=== PATIENT | male | born 1980 | race Caucasian/White ===

== ENCOUNTER 2020-11-01 18:48 | Emergency (ER) | payer BC, SELFPAY ==
--- NOTE | ~2020-11-01 | XR_ITS ---
EXAMINATION: XR hand RT min 3V DATE: 11/01/2020 19:36 INDICATION: Pain at the right fifth metacarpal post trauma TECHNIQUE: Posteroanterior, oblique and lateral views of the right hand were obtained. COMPARISON: None. FINDINGS: Only displaced sagittal oriented intra-articular fracture at the radial side of the base of the fifth metacarpal. No other fractures identified. Joint spaces are normal. Soft tissue swelling over the do rsal and ulnar sides of the hand. IMPRESSION: 1. Minimally displaced intra-articular fracture at the base of the right fifth metacarpal. Reviewed, dictated and finalized at location A.
[2020-11-01 18:58] VITALS: BP 137/86; PULSE 88; RESP 20; TEMP 36.4; O2SAT 99
[2020-11-01 19:09] VITALS: BP 137/86; PULSE 88; RESP 20; TEMP 36.4; O2SAT 99
--- NOTE | 2020-11-01 19:19 | ED.GENADULT ---
HPI - General Adult General Chief complaint: Extremity Injury, Upper Stated complaint: Bruised and swollen right Hand Source: patient Mode of arrival: ambulatory Limitations: no limitations History of Present Illness HPI narrative: Patient presents for evaluation of pain and bruising to the right hand since yesterday. He indicates he was placing large pieces of wood into a pile. He is forcefully moved a piece of wood forward using his right hand. It sounds like he jammed his hand in the process. Later in the day he attempted to push himself up off of the ground and felt a pain in the palmar aspect of the right hand overlying the fifth metacarpal. No loss of range of motion. He is right-hand dominant. He is not taking anything for pain. Pain is moderate in severity, without descriptive quality. No paresthesias. No additional complaints or concerns. Related Data Home Medications Medication Instructions Recorded Confirmed atorvastatin 10 mg PO DAILY 11/01/20 11/01/20 insulin lispro [Humalog U-100 CONTINUOUS SUBCUTANEOUS INFUSION 11/01/20 Insulin] lisinopril 5 mg PO DAILY 11/01/20 11/01/20 semaglutide [Ozempic] mg SUBCUT 11/01/20 Allergies Allergy/AdvReac Type Severity Reaction Status Date / Time No Known Allergies Allergy Verified 11/01/20 19:09 Review of Systems Review of Systems: Narrative: CONSTITUTIONAL: Denies fever, chills, or sweats. EYES: Denies visual changes, redness, or discharge. ENT: Denies rhinorrhea, congestion, sore throat, or otalgia. CARDIOVASCULAR: Denies chest pain, palpitations, or edema. RESPIRATORY: Denies cough or dyspnea. GASTROINTESTINAL: Denies abdominal pain, nausea, vomiting, or diarrhea. GENITOURINARY: Denies dysuria or hematuria. SKIN: Reports bruising to palmar aspect of right hand. MUSCULOSKELETAL: Reports pain in right hand. Denies back pain and myalgias NEUROLOGIC: Denies headache, numbness, dizziness, or weakness. PSYCHIATRIC: Denies anxiety or depression. [facility] Past Medical History Medical History (Updated 11/01/20 @ 20:30 by Ramírez Baugh, KIA, KAYLEE) Diabetes Surgical History Surgical History History of removal of cyst Family History Family History Father Diabetes mellitus Social History Social History Smoking status: Never smoker Alcohol intake: current Alcohol use details: Socially Substance use: never Living arrangements: with family Gender identity (if verbalized by the patient): Male Sexual Orientation (if Verbalized by the Patient): Straight or Heterosexual Spiritual care concerns: No Exam Narrative: Exam Narrative: GENERAL: Well-appearing, well-nourished, and in no acute distress. HEAD: Normocephalic, atraumatic. EYES: PERRLA and EOMI. ENT: Nares clear, no rhinorrhea or epistaxis. Mucous membranes moist. Oropharynx without tonsillar hypertrophy exudate or other lesions. Bilateral TMs pearly méndez nonbulging NECK: Supple. No adenopathy or masses. No carotid bruits or JVD CHEST: Clear to auscultation. No respiratory distress. No wheezes rales or rhonchi HEART: Regular rate and rhythm. No murmur heard. Normal peripheral pulses. ABDOMEN: Soft, nontender, nondistended, normal active bowel sounds. EXTREMITIES: Normal range of motion. No edema. Tenderness noted over fifth metacarpal of the right hand SKIN: Ecchymosis noted to palmar aspect of right hand. Warm, dry, no rash. NEURO: No focal deficits. Alert and oriented x3. PSYCH: Normal mood and affect. Course Course Emergency Course: This is a 40-year-old man here today with an injury to the right hand. X-ray showed proximal fifth metacarpal fracture. He was placed in a ulnar gutter splint and should follow-up outpatient with hand surgeon. He was also given a sling. He is neurovascularly int
== END 2020-11-01 20:35 | disposition home or self-care (01) ==
PROVIDERS: Emergency Provider Nurse Practitioner; PCP Internal Medicine
DX: S62.346A Nondisplaced fracture of base of fifth metacarpal bone, right hand, initial encounter for closed fracture (principal); X50.9XXA Other and unspecified overexertion or strenuous movements or postures, initial encounter; E11.9 Type 2 diabetes mellitus without complications
CPT/HCPCS: 29125; 73130; 99214; A4565; G0463

== ENCOUNTER 2022-04-08 16:33 | Emergency (ER) | payer BC, SELFPAY ==
[2022-04-08 16:39] VITALS: BP 125/86; PULSE 105; RESP 18; TEMP 36.7; O2SAT 100
--- NOTE | 2022-04-08 16:48 | ED.URI ---
HPI - URI/Sore Throat General Chief Complaint: Upper Respiratory Infection Stated Complaint: sore throat Time Seen by Provider: 04/08/22 16:48 Source: patient, RN notes reviewed and old records reviewed Mode of arrival: ambulatory Limitations: no limitations History of Present Illness HPI Narrative: 41-year-old male presents to the [facility] with complaints of body aches, headache, runny nose that started last night. Took some ibuprofen last night, no medications today. symptoms less than 24 hours Related Data Home Medications Medication Instructions Recorded Confirmed multivitamin (Multiple Vitamins 1 tablet PO DAILY 04/29/19 04/08/22 tablet) subcutaneous insulin pump (MiniMed #1 ea 03/02/20 04/08/22 [id number] Insulin Pump) Allergies Allergy/AdvReac Type Severity Reaction Status Date / Time No Known Allergies Allergy none Uncoded 12/15/21 08:47 Review of Systems Review of Systems: All systems reviewed & are unremarkable except as noted in HPI and below Constitutional: Constitutional: Reports no additional constitutional complaints Eyes: Eyes: Reports no additional eye complaints ENT: Reports as per HPI and Reports nasal congestion Cardiovascular: Cardiovascular: Reports no additional cardiovascular complaints, Denies chest pain and Denies dyspnea Respiratory: Respiratory: Reports no additional respiratory complaints, Denies chest congestion, Denies cough and Denies dyspnea Gastrointestinal: Gastrointestinal: Reports no additional gastrointestinal complaints, Denies abdominal pain, Denies nausea and Denies vomiting Musculoskeletal: Musculoskeletal: Reports no additional musculoskeletal complaints Integumentary/Breasts: Skin/Breast: Reports system reviewed and no additional complaints, except as docu Neurologic: Reports system reviewed and no additional complaints, except as documented Psychiatric: Psychiatric: Reports no additional psychiatric complaints Allergic/Immunologic: Allergic/Immunologic: Reports no additional allergic/immunologic complaints [facility] Past Medical History Medical History Diabetes Pure hypercholesterolemia, unspecified Type 1 diabetes mellitus with hyperglycemia, with long-term current use of insulin Surgical History Surgical History History of removal of cyst Family History Family History Father Family history of obesity Depression Hypertension Cerebrovascular accident Grandparent Family history of cataracts Family history of arthritis Diabetes mellitus Sibling Family history of attention deficit hyperactivity disorder (ADHD) Father Diabetes mellitus Social History Social History Smoking status: Never smoker Second hand tobacco smoke exposure: No Alcohol intake: current Alcohol use details: Socially Substance use: never Gender identity (if verbalized by the patient): Male Sexual Orientation (if Verbalized by the Patient): Straight or Heterosexual Spiritual care concerns: No Comments At the time of my signature, I reviewed and agree with the nursing past medical, surgical, social, and family history. There is no relevant family history pertinent to the patient complaint. Exam Const: General: cooperative, healthy appearing, comfortable, no acute distress, well developed, alert and well nourished Nutritional Appearance: well nourished and obese Orientation/consciousness: patient oriented x3 Limitations: no limitations HENMT: Head: normal to inspection Ears: hearing grossly normal bilaterally and external ears normal Face/Nose/Sinus: Normal external nose present, Normal nares present, Normal nasal mucous membranes and turbinates present, Nasal discharge present clear bilateral and normal facial exam Face and sinus: norm
== END 2022-04-08 16:59 | disposition home or self-care (01) ==
PROVIDERS: Emergency Provider Nurse Practitioner
DX: B34.9 Viral infection, unspecified (principal); J06.9 Acute upper respiratory infection, unspecified; E10.9 Type 1 diabetes mellitus without complications; E78.00 Pure hypercholesterolemia, unspecified; Z96.41 Presence of insulin pump (external) (internal)
CPT/HCPCS: 87081; 99212; G0463

== ENCOUNTER → 2023-04-24 15:27 | Outpatient (CLI) | payer BC, SELFPAY ==
--- NOTE | ~2023-04-24 | MR_ITS ---
EXAMINATION: MR ankle RT wo con DATE: 04/24/2023 16:15 INDICATION: Right ankle peroneal tendinitis TECHNIQUE: Magnetic resonance imaging (MRI) of the right ankle was performed without intravenous cont rast. Sequences included sagittal, coronal, and axial proton-density weighted fast spin echo without and with fat saturation. COMPARISON: None. FINDINGS: Medial ankle ligaments: Deep and superficial deltoid ligaments as well as the spring ligament are normal. Lateral ankle ligaments: The anterior and posterior inferior tibiofibular ligaments are normal. The anterior talofibular, calc aneofibular and posterior talofibular ligaments are normal. Tendons: Small enthesophytes at the calcaneal insertion of the normal Achilles tendon. There is a convex conto ur to the retromalleolar groove. There is a tear of the superior peroneal retinaculum with anterior s ubluxation of the peroneus longus and brevis tendons which extend along the anterolateral margin of t he lateral malleolus. There is mild tendinopathy and small longitudinal split tear of the peroneus lo ngus tendon at the level of the tip of the lateral malleolus. Additional mild tendinopathy and longit udinal split tearing of the peroneus brevis tendon centered more distally at the level of the peronea l tubercle. Small amount of fluid in the peroneal tendon sheath consistent with mild peroneal tenosyn ovitis. The tibialis anterior and extensor hallucis longus and extensor digitorum longus tendons are normal. The tibialis posterior, flexor digitorum longus and flexor hallucis longus tendons are normal . Plantar fascia: Mild tendinopathy/enthesopathy of the proximal plantar aponeurosis with moderate-sized plantar calcan eal spur. No associated marrow edema or surrounding soft tissue edema to suggest acute plantar fascii tis. Bones/other: Bone alignment is normal. There are low signal intensity bone islands at the distal tibia and posteri or calcaneus. Marrow signal is otherwise normal with no fracture, reactive edema or pathologic marrow replacing process. Joint spaces are relatively preserved. Fluid: Physiologic amount fluid in the joint spaces. Small ganglion cyst arising from the dorsal/medial jaycee in of the talonavicular joint space. IMPRESSION: 1. Tear of the superior peroneal retinaculum with anterior subluxation of the peroneus longus and juarez vis tendons. 2. Mild peroneal tenosynovitis with mild tendinopathy and longitudinal split tearing of both the maureen neus longus and brevis tendons. Reviewed, dictated and finalized at location A. [employer] IMPRESSION: 1. Tear of the superior peroneal retinaculum with anterior subluxation of the p eroneus longus and brevis tendons. 2. Mild peroneal tenosynovitis with mild tendinopathy and longitudinal split te aring of both the peroneus longus and brevis tendons.
== END ==
PROVIDERS: PCP Podiatrist Foot & Ankle Surgery; Visit Provider Podiatrist Foot & Ankle Surgery
DX: M76.71 Peroneal tendinitis, right leg (principal); S93.491A Sprain of other ligament of right ankle, initial encounter; X58.XXXA Exposure to other specified factors, initial encounter
CPT/HCPCS: 73721

== ENCOUNTER 2024-09-19 13:51 | Emergency (ER) | payer BC, SELFPAY ==
--- NOTE | ~2024-09-19 | XR_ITS ---
XR foot LT min 3V 09/19/2024 14:22 Indication: Left great toe pain and deformity Procedure: 4 views left first toe Comparison: No prior studies for comparison. Findings: There is a displaced oblique intra-articular fracture first proximal phalanx extending to t he IP joint. No other fracture is identified. Mild soft tissue swelling. Impression: 1: Displaced oblique intra-articular fracture first proximal phalanx extending to the IP joint. Reviewed, dictated and finalized at location A. Impression: 1: Displaced oblique intra-articular fracture first proximal phalanx extending to the IP joint.
[2024-09-19 14:00] VITALS: BP 122/83; PULSE 91; RESP 16; TEMP 35.9; O2SAT 100
--- NOTE | 2024-09-19 14:16 | ED.LOWEXIN ---
HPI - Extremity Injury (Lower) General Chief Complaint: Extremity Injury, Lower Stated Complaint: Left Great Toe Injury Time Seen by Provider: 09/19/24 14:00 Source: patient and RN notes reviewed Mode of arrival: ambulatory Limitations: no limitations History of Present Illness HPI Narrative: 43-year-old male presents to [facility] complaining of injury to left great toe. Patient reports stepping out his garage barefoot when he slipped on the steps and fell and got is left great toe caught in the door frame while falling. Patient denies hitting his head, loss of consciousness, neck or back pain, or any other injuries. Patient reports he has pain to his left great toe small laceration to the top his toe. He has tetanus is up-to-date. Patient reports numbness and tingling to his left great toe. Patient's injury occurred approximately 30 minutes ago prior to arrival. Patient states he is able to bear weight on his left foot. Patient's history of diabetes. Related Data Home Medications ?Medication ?Instructions ?Recorded ?Confirmed ?Last Taken ?Type multivitamin (Multiple Vitamins 1 tablet PO DAILY 04/29/19 06/26/24 Unknown History tablet) subcutaneous insulin pump 11/02/22 06/26/24 Unknown History Allergies Allergy/AdvReac Type Severity Reaction Status Date / Time No Known Allergies Allergy Verified 09/19/24 14:04 Review of Systems Review of Systems: CONSTITUTIONAL: Denies fever, chills, or sweats. EYES: Denies visual changes, redness, or discharge. ENT: Denies rhinorrhea, congestion, sore throat, or otalgia. CARDIOVASCULAR: Denies chest pain, palpitations, or edema. RESPIRATORY: Denies cough or dyspnea. GASTROINTESTINAL: Denies abdominal pain, nausea, vomiting, or diarrhea. GENITOURINARY: Denies dysuria or hematuria. SKIN: Denies rash, or itching. Positive for wound MUSCULOSKELETAL: Denies back pain, joint pain, or myalgia. Positive for left great toe injury NEUROLOGIC: Denies headache, or weakness. Positive for numbness and tingling PSYCHIATRIC: Denies anxiety or depression. All other systems reviewed are negative, except as documented in HPI. [facility] Past Medical History Medical History Obesity High thyroid stimulating hormone (TSH) level BMI greater than 30 Pure hypercholesterolemia, unspecified Type 1 diabetes mellitus with hyperglycemia, with long-term current use of insulin Surgical History Surgical History History of ankle surgery History of removal of cyst Family History Family History Father Family history of obesity Depression Hypertension Cerebrovascular accident Grandparent Family history of cataracts Family history of arthritis Diabetes mellitus Sibling Family history of attention deficit hyperactivity disorder (ADHD) Father Diabetes mellitus Social History Social History Smoking status: Never smoker Second hand tobacco smoke exposure: No Alcohol intake: current Alcohol use details: Socially Substance use: never Lack of Transportation: No Lack of Food: Never True Current Housing: I Have Housing Concerned About Future Housing: No Difficulty Paying Gas/Electric Bills: No Difficulty Paying for Meds: No Currently Unemployed: No Education: Bachelor's Degree Difficulty w/ Childcare or Family Care: No Living arrangements: with family Gender identity (if verbalized by the patient): Male Sexual Orientation (if Verbalized by the Patient): Straight or Heterosexual Spiritual care concerns: No Comments At the time of my signature, I reviewed and agree with the nursing past medical, surgical, social, and family history. There is no relevant family history pertinent to the patient complaint. Exam Narrative: GENERAL: This is a well-nourished, well-developed adult, in no apparent distress. They are non ill-appearing, nontoxic appearing. HEAD: normocephalic, atraumatic. EYES: Sclera clear/white. Vision is grossly intact. Conjunctiva normal. Extraocular movement intact. EARS: External ears normal Hearing grossly intact. NOSE: External nose normal THROAT: Mucous membranes moist NECK: Neck supple CARDIOVASCULAR: Regular rate and rhythm RESPIRATORY: Respiratory rate normal, respiratory effort nonlabored, no respiratory distress NEURO: awake, alert, and oriented to person, place and time. There were no obvious focal neurologic abnormalities. EXTREMITIES: Left great toe: No obvious deformity, injury, swelling, bruising, redness. Left great toe is angled towards the 2nd toe. There is tenderness to palpation to the left great toe. Normal range of motion. No other tenderness to left foot. Capillary refill less than 3 seconds. Left pedal Pulse 2 +palpable. Neurovascular status intact distal injury. Patient is able to feel examiner palpate great toe reports paresthesia. Normal dorsiflexion plantar flexion left foot. She is able to wiggle his toes. BACK: Nontender without deformity. SKIN: Small vertical linear laceration to the anterior surface of the lateral left great toe. Wound measures less than 0.5 cm in length. Wound is superficial. No erythema, swelling, discharge, no area of fluctuance or induration. Course Course Emergency Course: Portions of this record may have been created with voice recognition software Level of Care: Express Care Visit Vital Signs Vital signs: Vital Signs Temperature 96.7 F L 09/19/24 14:00 Pulse Rate 91 09/19/24 14:00 Respiratory Rate 16 09/19/24 14:00 Blood Pressure 122/83 09/19/24 14:00 Pulse Oximetry 100 09/19/24 14:00 Oxygen Delivery Room Air 09/19/24 14:00 Temperature 96.7 F L 09/19/24 14:00 Pulse Rate 91 09/19/24 14:00 Respiratory Rate 16 09/19/24 14:00 Blood Pressure 122/83 09/19/24 14:00 Pulse Oximetry 100 09/19/24 14:00 Oxygen Delivery Room Air 09/19/24 14:00 Reviewed Transfer Transfered to: [facility] Transportation: Other (Private via) Transfer rationale: Patient requires a higher level care, needs further evaluation and management, may also need possible reduction of left great toe, possible IV antibiotics for an open fracture, urgent ortho evaluation Accepting physician: Dr. Bernal [facility] - Extremity Injury (Lower) [facility] Narrative Medical decision making narrative: X-ray of left foot reveals a displaced oblique fracture to the proximal phalanx of the great toe extending into the DIP. Patient wound is very superficial does not appear to extend into the dermal layer. Given patient's history of diabetes it is possible this is an open fractyre. Extensive wound care irrigation was performed that the Express Care by nursing staff. Patient's tetanus is up-to-date. Given exam findings and results is recommended patient seek a higher level care and proceed immediately to the emergency department for potential reduction of left great toe, possible IV antibiotics, urgent ortho consult, and further evaluation and management his condition. Patient refused postop shoe. Patient is agreeable to go to [facility]. Called report over to [facility] spoke with Lenore COE who is aware of this patient and Dr. Bernal who accepted this patient for transfer. Patient advised to remain NPO and proceed immediately to the ER. Differential Diagnosis Differential diagnosis: Likely fracture of toe and other (Toe dislocation, foot fracture) Critical Care Time Critical Care Time Critical Care Time: No Discharge Plan Discharge Clinical Impression: Displaced fracture of proximal phalanx of great toe Qualifiers: Encounter type: initial encounter Fracture type: open Laterality: left Qualified Code(s): S92.412B - Displaced fracture of proximal phalanx of left great toe, initial encounter for open fracture Patient Disposition: Acute Care Hospital Condition: Stable Patient Language: Tajik Prescriptions: No Action Baqsimi 3 mg/actuation spray,non-aerosol 3 mg intranasal ONCE PRN (Reason: hypoglycemia) Qty: 1 0RF Rx Instructions: as a single dose insulin degludec [Tresiba FlexTouch U-100] 100 unit/mL (3 mL) insulin pen 40 unit subcut DAILY PRN (Reason: insulin pump malfunction ) Qty: 15 1RF multivitamin [Multiple Vitamins] Tablet 1 tablet PO DAILY (DME) subcutaneous insulin pump Misc See Rx Instructions .Route Rx Instructions: As directed Mounjaro 2.5 mg/0.5 mL pen injector 2.5 mg subcut WEEKLY Qty: 2 0RF Rx Instructions: for 4 weeks (DME) Contour Next Test Strips Strip See Rx Instructions .ROUTE .COMPLEX Qty: 600 0RF Dose Instruction: USE TO CHECK BLOOD SUGAR 4 TO 6 TIMES DAILY Rx Instructions: USE TO CHECK BLOOD SUGAR 4 TO 6 TIMES DAILY (DME) Dexcom G7 Sensor Device See Rx Instructions .ROUTE .MEDSUPPLY Qty: 9 3RF Rx Instructions: change every 10 days insulin lispro [Humalog U-100 Insulin] 100 unit/mL solution See Rx Instructions .ROUTE .COMPLEX Qty: 130 3RF Dose Instruction: INJECT UP TO 150 UNITS UNDER THE SKIN DAILY VIA INSULIN PUMP Rx Instructions: INJECT UP TO 150 UNITS UNDER THE SKIN DAILY VIA INSULIN PUMP lisinopril 2.5 mg tablet See Rx Instructions .ROUTE .COMPLEX Qty: 90 3RF Dose Instruction: TAKE 1 TABLET BY MOUTH DAILY Rx Instructions: TAKE 1 TABLET BY MOUTH DAILY atorvastatin 10 mg tablet See Rx Instructions .ROUTE .COMPLEX Qty: 90 3RF Dose Instruction: TAKE 1 TABLET BY MOUTH EVERY NIGHT AT BEDTIME Rx Instructions: TAKE 1 TABLET BY MOUTH EVERY NIGHT AT BEDTIME Follow-up/Referrals: PHYSICIAN,HANDMADE TILE ARTIST [Primary Care Provider] - Time of Disposition: 14:53
--- OUTSIDE RECORDS SUMMARY | 2024-09-19 14:30 | XMS_ITS | Clinical Summary ---
Author Organization [facility] Address [address] [place] [phone] Care Team Providers Care Senior Librarian Name Role Phone Joanie Cardona MD Primary Care Provide r Sarah Daniels DPM Unavailable [phone] Allergies No known active allergies Medications glucagon (glucagon) 1 mg kit inject for severe hypoglycemia. 2 kit 3 1 Active blood glucose diagnostic (ONETOUCH ULTRA TEST) strip Take 3 times daily 300 3 1 Active lancets (onetouch ultrasoft) misc Take as directed checks 8-10times daily 900 3 9 Active infusion set for insulin pump (INFUSION SET 23 6MM) infusion set Take as directed changes q 2-3 days 45 3 9 Active blood glucose diagnostic (ONETOUCH ULTRA TEST) strip Test sugars 4-6 times per day as directed 600 3 0 Active insulin pump syringe (MINIMED SYRINGE RESERVOIR) 3 mL misc Take as directed changes q 2-3 days 45 3 9 Active HUMALOG U-100 INSULIN 100 unit/mL injection 8 Active atorvastatin (LIPITOR) 20 mg tablet TAKE 1 TABLET DAILY 90 tablet 3 9 Active Additional Information Patient taking differently: 10 mg oral Daily, Reported on 11/01/2022 lisinopril (PRINIVIL,ZESTR IL) 10 mg tablet TAKE 1 TABLET DAILY 90 tablet 3 9 Active Additional Information Patient taking differently: 2.5 mg oral, Reported on 10/25/2021 Baqsimi 3 mg/actuation spray,non-aeros ol 1 Active oxyCODONE-aceta minophen (PERCOCET) 5-325 mg per tabletIndicatio ns:Pain Take 1 tablet by mouth every 4 (four) hours as needed for pain 40 tablet 4 Active aspirin 325 mg tablet Take 1 tablet (325 mg total) by mouth daily 30 tablet 4 Active Active Problems Problem Noted Date Diagnosed Date Tendinitis of right ankle 07/06/2023 Other disorders of bone development and growth, right tibia 07/06/2023 Right ankle swelling 11/01/2022 Assessment & Plan (11/01/2022 3:52 PM CDT): Stable, new Will get xray of the right ankle Ice compress elevate aleve prn F/u prn Encounter for wellness examination 10/25/2021 Assessment & Plan (11/01/2022 4:00 PM CDT): Recent labs reviewed F/u in 1 year for annual Assessment & Plan (10/25/2021 4:18 PM CDT): Recent labs reviewed F/u in 1 year for annual Morbid obesity with BMI of 40.0-44.9, adult 08/15 Assessment & Plan (10/31/2022 7:13 AM CDT): He was counseled on the importance of maintaining a healthy weight and the risks of obesity. Weight loss recommended. Encourage 150min/ week of exercise Encourage 1500 calories in a day for weight loss Insulin pump in place 01/17/2017 Mixed hyperlipidemia 01/17/2017 Assessment & Plan (10/31/2022 7:13 AM CDT): Stable Lipid panel reviewed Continue atorvastatin 10mg daily Assessment & Plan (10/25/2021 3:57 PM CDT): Stable Lipid panel reviewed Continue atorvastatin 10mg daily Assessment & Plan (06/04/2018 9:03 AM CONSUMER LOAN SPECIALIST): Last labs completed nearly 1 year ago indicated stability of dyslipidemia. Pt is encouraged to Cnt. With current dosing of atorvastatin, heart healthy diet, certainly increasing exercise as tolerated. Follow-up as scheduled in 3 months with labs prior to office visit. Essential hypertension 01/17/2017 Assessment & Plan (11/01/2022 3:38 PM CDT): Bp in the office today BP Readings from Last 1 Encounters: 11/01/22 124/90 Continue current regimen of lisinopril 2.5mg daily Recommend DASH diet, heart-healthy lifestyle, exercise. Discussed the risks of hypertension. F/u in 6 months Assessment & Plan (05/02/2022 4:47 PM CONSUMER LOAN SPECIALIST): Bp in the office today BP Readings from Last 1 Encounters: 10/25/21 122/80 Continue current regimen of lisinopril 2.5mg daily Recommend DASH diet, heart-healthy lifestyle, exercise. Discussed the risks of hypertension. F/u in 6 months Assessment & Plan (10/25/2021 3:58 PM CDT): Bp in the office today BP Readings from Last 1 Encounters: 10/25/21 122/80 Continue current regimen of lisinopril 2.5mg daily Recommend DASH diet, heart-healthy lifestyle, exercise. Discussed the risks of hypertension. F/u in 6 months Type 1 diabetes mellitus with hyperglycemia 08/15 Overview (07/20/2016): DMII WO CMP UNCNTRLD Assessment & Plan (11/01/2022 3:38 PM CDT): The patient was counseled on a heart-healthy, diabetic-friendly diet, as well as life-style modification. Education provided on the diagnosis and risks of the disease. We will continue to monitor routine labs. Additionally, He was counseled on routine diabetic eye exams, foot exams, and other preventive care. Most recent A1c on file: Lab Results Component Value Date HGBA1C 7.5 (H) 10/31/2022 Continue ozempic and insulin pump Continue insulin pump Continue following with endocrinology Dr. Neli Liao in 6 months Assessment & Plan (05/02/2022 4:47 PM CONSUMER LOAN SPECIALIST): The patient was counseled on a heart-healthy, diabetic-friendly diet, as well as life-style modification. Education provided on the diagnosis and risks of the disease. We will continue to monitor routine labs. Additionally, He was counseled on routine diabetic eye exams, foot exams, and other preventive care. Most recent A1c on file:7.2 Continue ozempic and insulin pump Continue insulin pump Continue following with endocrinology Dr. Neli Liao in 6 months Assessment & Plan (10/25/2021 4:16 PM CDT): The patient was counseled on a heart-healthy, diabetic-friendly diet, as well as life-style modification. Education provided on the diagnosis and risks of the disease. We will continue to monitor routine labs. Additionally, He was counseled on routine diabetic eye exams, foot exams, and other preventive care. 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 PPD testing completed office today is all a vaccinations are up-to-date. Review of medications, chronic medical conditions, and physical/cognitive review without any indications noted limiting his ability to care for child. BMI 38.0-38.9,adult 01/17/2017 08/28/19 19 Pure hypercholesterolemia 06/23/2016 Overview (07/20/2016): PURE HYPERCHOLESTEROLEM Diabetes mellitus 08/31/2013 01/17/2017 Overview (07/21/2016): Diabetes mellitus Immunizations Immunization Administration Dates Next Due DT 10/18/2016 Influenza, Quadrivalent, Spl it, Preservative Free, Intramuscular 03/19/2021,03/20/2020 Influenza, Unspecified 11/01/2022(Deferr ed: Patient Refused),02/06/2019,02/05/2018 PPD TEST 06/04/2018 Pfizer SARS-CoV-2 Monovalent Vaccination (12+ Yrs) PURPLE 07/25/2020,06/30/2020 Pneumococcal Polysaccharide PPV23 02/07/2018 Tdap 12/30/2009 Surgical History Surgery Date Site/Laterality Comments INGUINAL HERNIA REPAIR 1982 Hernia repair, inguinal OTHER SURGICAL HISTORY 1995 benign tumor R arm OTHER SURGICAL HISTORY 01-endo: insuli pump PILONIDAL CYSTECTOMY Medical History Medical History Date Comments Hx Other Medical DM1 age 15 Hx Other Medical tumor remor rem avinash right arm Hx Other Medical 01-endo Aspiration into airway during williamson rgery at [facility] Type 2 diabetes mellitus (HCC) Family History Medical History Relation Name Comments Other Brother 2 Alive and well; Depression Father Depression; Hypertension Father Hypertension; Diabetes type II Other Family hist ory of Diabetes -Type II; Hypertension Other Family history of Hypertension; Other Sister 2 Alive and well; Relation Name Status Comments Brother 1 Alive Brother 2 Father Other Sister 1 Alive Sister 2 Social History Tobacco Use Types Packs/Day Years Used Date Smoking Tobacco: Never Smokeless Tobacco: Never Tobacco Cessation:Counseling Given: Not Answered Alcohol Use Standard Drinks/Week Comments No 0 (1 standard drink = 0.6 oz pur e alcohol) AUDIT-C Answer Date Recorded Q1: How often do you have a drink containing alc ohol? 2-4 times a month 07/20/2023 Q2: How many drinks containi ng alcohol do you have on a typical day when you are drinking? 1 or 2 07/20/2023 Q3: How often do you have si x or more drinks on one occasion? Never 07/20/2023 PHQ-2 Answer Date Recorded PHQ-2 Total Score (If total score is 3 or more points, staff should administer the PHQ-9) 0 11/01/2022 Personal Safety Answer Date Recorded Have you ever been in or are you currently in a harmful physical or emotional relationship or is someone making you feel afraid or unsafe? Denies 07/20/2023 Sex and Gender Information Value Date Recorded Sex Assigned at Not on file Legal Sex Male 11:55 PM CONSUMER LOAN SPECIALIST Gender Identity Not on file Sexual Orientation Not on file Obstetrics History Last Filed Vital Signs Vital Sign Reading Time Taken Comments Blood Pressure 147/85 07/20/2023 3:20 PM CDT Pulse 82 07/20/2023 3:20 PM CDT Temperature 36.4 C (97.6 F) 07/20/2023 3:20 PM CDT Respiratory Rate 20 07/20/2023 3:20 PM CDT Oxygen Saturation 100% 07/20/2023 3:20 PM CDT Inhaled Oxygen Concentration - - Weight 136.6 kg (301 lb 2.4 oz) 024 10:01 AM CDT Height 190.5 cm (6' 3) 07/20/2023 10:0 1 AM CDT Body Mass Index 37.64 07/20/2023 10:01 AM CDT Plan of Treatment Health Maintenance Due Date Last Done Comments Varicella Vaccines (1 of 2 - 13+ 2-dose series) 1993 Hepatitis B Screening 1998 Pneumococcal vaccine <65 (2 of 2 - PCV) 02/07/2019 02/07/2018 Hemoglobin A1C 05/03/2023 10/31/2022, 07/10/2021, 04/19/2021, Additional history exists Dilated Eye Exam 07/03/2023 07/02/2022, 09/15/2015 Albumin Creatinine Ratio, Urine 11/01/2023 10/31/2022, 10/31/2022, 10/21/2021, Additional history exists Lipid Panel 11/01/2023 10/31/2022, 10/15, 10/21/2021, Additional history exists TSH Level 11/01/2023 10/31/2022, 10/15, 10/21/2021, Additional history exists eGFR 11/01/2023 10/31/2022, 10/15, 10/21/2021, Additional history exists Depression Screening 11/02/2023 11/01/2022, 05/02/2022, 10/25/2021, Additional history exists Foot Exam 11/02/2023 11/01/2022, 10/15, 10/20/2020, Additional history exists Regular Well Visit/Exam 18-64 11/02/2023 11/01/2022, 10/25/2021, 10/20/2020, Additional history exists Covid-19 Vaccine ( season) 2023 03/19/2021, 07/25/2020, 06/30/2020 Influenza Vaccine (Season Ended) 2024 03/19/2021, 03/20/2020, 02/06/2019, Additional history exists DTaP/Tdap/Td Vaccine (3 - Td or Tdap) 10/18/2026 10/18/2016, 12/30/2009 Hepatitis C Screening Completed 10/31/2022 HPV Vaccines Aged Out No longer eligi ble based on patient's age to complete this topic Medical Devices Implanted Type Area Remote Computer Terminal Operator Device Identifier Shelf Expiration Date Model / Serial / Lot [employer] [place] Suture Juggerknot 1 Short Od1.45 Mm Drill Bit Soft Rigid [id number] - [id number] Implanted:Qty: 1 on 07/20/2023 by Sarah Daniels DPM at [facility] Right: Fibula [employer] [id number] 10/08/2027 [id number] / / [id number] [employer] [place] Suture Juggerknot 1 Short Od1.45 Mm Drill Bit Soft Rigid [id number] - [id number] Implanted:Qty: 1 on 07/20/2023 by Sarah Daniels DPM at [facility] Right: Fibula [employer] [id number] 10/27/2027 [id number] / / [id number] [employer] [place] Suture Juggerknot 1 Short Od1.45 Mm Drill Bit Soft Rigid [id number] - [id number] Implanted:Qty: 1 on 07/20/2023 by Sarah Daniels DPM at [facility] Right: Fibula [employer] [id number] 10/06/2027 [id number] / / [id number] [employer] [place] Suture Juggerknot 1 Short Od1.45 Mm Drill Bit Soft Rigid [id number] - [id number] Implanted:Qty: 1 on 07/20/2023 by Sarah Daniels DPM at [facility] Right: Fibula [employer] [id number] 12/29/2023 [id number] / / [id number] Procedures Procedure Name Priority Date/Time Associated Diagnosis Comments HEPATITIS C ANTIBODY Routine 10/31/2022 7:27 AM CDT Preventative health care Need for hepatitis C screening test EGFR Routine 10/31/2022 7:27 AM CDT Preventative health care HEMOGLOBIN A1C Routine 10/31/2022 7:27 AM CDT Preventative health care LIPID PANEL Routine 10/31/2022 7:27 AM CDT TSH Routine 10/31/2022 7:27 AM CDT ALBUMIN CREATININE RATIO, URINE Routine 10/31/2022 7:21 AM CDT Preventative health care DIABETIC EYE EXAM Routine 07/02/2022 HM DIABETES FOOT EXAM Routine 07/11/2016 from Last 3 Months or Most Recently Relevant to Health Maintenance Results * eGFR (10/31/2022 7:27 AM CDT) eGFR 115 mL/min/1. 73 m2 [facility] ([place]) Comment: Interpretive Data Reference Interval Normal >/= 90 mL/min/1.73m2 Mildly decreased* 60 - 89 mL/min/1.73m2 Mildly to moderately decreased 45 - 59 mL/min/1.73m2 Moderately to severely decreased 30 - 44 mL/min/1.73m2 Severely decreased 15 - 29 mL/min/1.73m2 Kidney Failure < 15 mL/min/1.73m2 *Relative to young adult level Estimated glomerular filtration rate is determined by the 2020 CKD-EPI equation recommended by the National Kidney Foundation (A Unifying Approach to GFR Estimation: Recommendations of the NKF-ASK Task Force on Reassessing the Inclusion of Race in Diagnosing Kidney Disease, JASN 2020). The CKD-EPI equation should not be used for patients with unstable renal function and has not been validated in children and those over 70. Current interpretive data was last reviewed 2021. Blood 10/31/2022 7:27 AM CDT 10/31/2022 9:39 AM CDT Joanie Cardona MD LAB BLOOD ORDERABLES Final Result Performing Organization Address [facility] Co de Phone Number [facility]UE[facility] ([place]) 1 [facility] [place] [address] * Hepatitis C antibody (10/31/2022 7:27 AM CDT) Hep C Ab Nonreactive Nonreactive [facility] ([place]) Comment: Interpretive Data Nonreactive: Antibodies to HCV not detected. Does NOT exclude the possibility of recent exposure to HCV. Equivocal: Equivocal for HCV antibodies. Supplemental molecular testing will be automatically performed to determine infection status in accordance with current CDC screening recommendations. Reactive: Positive for HCV antibodies. This may represent current or past HCV infection. Supplemental molecular testing will be automatically performed to determine current infection status in accordance with current CDC screening recommendations. Interpretive data was last revised on 2019. Testing performed by: [facility], [address] [place] [address]., [id number] Blood 10/31/2022 7:27 AM CDT 10/31/2022 3:32 PM CDT Narrative [facility] ([place]) - 10/31/2022 4:36 PM CDT fasting Joanie Cardona MD LAB MICROBIOLOGY - GE NERAL ORDERABLES Final Result Performing Organization Address City/[facility]/ZIP Co de Phone Number [facility]NABELLE DUE[facility]AS ([place]) 1 [facility] [place] [address] * TSH (10/31/2022 7:27 AM CDT) Thyroid Stimulating Hormone 2.59 0.30 - 4.20 mcIUnit/mL [facility] ([place]) Blood 10/31/2022 7:27 AM CDT 10/31/2022 9:39 AM CDT Vaishali Jolly APRN LAB BLOOD ORDERABLES Lorena l Result [facility] ([place]) 1 [facility] [place] [address] * (ABNORMAL) Hemoglobin A1c (10/31/2022 7:27 AM CDT) Hgb A1C 7.5(H) 4.0 - 5.6 % [facility] ([place]) Estimated Average Glucose 169 mg/dL [facility] ([place]) Comment: The ADA recommends reporting an estimated Average Glucose (eAG) with all Hemoglobin A1c results using the equation derived from a study of 507 normal and diabetic adults. Minority populations were underrepresented and children were not included. (Diabetes Care 31:4623-0466, 2008). The eAG is not equivalent to a fasting glucose. Blood 10/31/2022 7:27 AM CDT 10/31/2022 9:39 AM CDT Narrative [facility] ([place]) - 10/31/2022 10:03 AM CDT fasting Joanie Cardona MD LAB BLOOD ORDERABLES Final Result Performing Organization Address City/[facility]/ZIP Co de Phone Number [facility]NA[facility]LE DUE[facility] ([place]) 1 [facility] [place] [address] * Lipid panel (10/31/2022 7:27 AM CDT) Cholesterol 160 30 - 199 mg/dL [facility] ([place]) Comment: Interpretive Data Ages < or = 19 years Acceptable: <170 mg/dL Borderline high: 170-199 mg/dL High: >or= 200 mg/dL Ages > or = 20 years Desirable: <200 mg/dL Borderline high: 200-239 mg/dL High: >or= 240 mg/dL Literature References: 1. Expert Panel on Integrated Guidelines for Cardiovascular Health and Risk Reduction in Children and Adolescents. Pediatrics 2011;128:S213 2. NCEP Expert Panel. Circulation 2004;110:227 Current Interpretive Data was last revised on 2017. Triglycerides 75 <=149 mg/dL [facility]UE[facility] ([place]) Comment: Interpretive Data Ages < or = 9 years Acceptable: <75 mg/dL Borderline high: 75-99 mg/dL High: >or= 100 mg/dL Ages 10 to 20 years Acceptable: <90 mg/dL Borderline high: 90-129 mg/dL High: >or= 130 mg/dL Ages > or = 20 years Desirable: <150 mg/dL Borderline high: 150-199 mg/dL High: 200-499 mg/dL Very high: >or= 499 mg/dL Literature References: 1. Expert Panel on Integrated Guidelines for Cardiovascular Health and Risk Reduction in Children and Adolescents. Pediatrics 2011;128:S213 2. NCEP Expert Panel. Circulation 2004;110:227 Current Interpretive Data was last revised on 2017. HDL 43 >=40 mg/dL [facility] ([place]) Comment: Interpretive Data Ages < or = 19 years Acceptable: >45 mg/dL Borderline low: 40-45 mg/dL Low: <40 mg/dL Ages > or = 20 years Desirable: >or= 60 mg/dL Low: <40 mg/dL Literature References: 1. Expert Panel on Integrated Guidelines for Cardiovascular Health and Risk Reduction in Children and Adolescents. Pediatrics 2011;128:S213 2. NCEP Expert Panel. Circulation 2004;110:227 Current Interpretive Data was last revised on 2017. LDL, calculated 102 <=129 mg/dL [facility] ([place]) Comment: Interpretive Data Ages < or = 19 years Acceptable: <110 mg/dL Borderline high: 110-129 mg/dL High: >or= 130 mg/dL Ages > or = 20 years Optimal: <100 mg/dL Near optimal: 100-129 mg/dL Borderline high: 130-159 mg/dL High: >160 mg/dL Literature References: 1. Expert Panel on Integrated Guidelines for Cardiovascular Health and Risk Reduction in Children and Adolescents. Pediatrics 2011;128:S213 2. NCEP Expert Panel. Circulation 2004;110:227 Current Interpretive Data was last revised on 2017. Non-HDL Cholesterol 117 mg/dL [facility]UE[facility] ([place]) Comment: Interpretive Data Ages < or = 19 years Acceptable: <120 mg/dL Borderline high: 120-144 mg/dL High: >145 mg/dL Ages > or = 20 years When triglycerides are >200 mg/dL, Non-HDL cholesterol is a secondary target of therapy with treatment goals that are 30 mg/dL greater than the LDL cholesterol target. Literature References: 1. Expert Panel on Integrated Guidelines for Cardiovascular Health and Risk Reduction in Children and Adolescents. Pediatrics 2011;128:S213 2. NCEP Expert Panel. Circulation 2004;110:227 Current Interpretive Data was last revised on 2017. Chol/HDL ratio 4 [facility] ([place]) Blood 10/31/2022 7:27 AM CDT 10/31/2022 9:39 AM CDT us Vaishali Jolly APRN LAB BLOOD ORDERABLES Lorena l Result Performing Organization Address [facility] Co de Phone Number ANNABELLE DUEÑAS ([place]) 1 [facility] [place] [address] * Albumin Creatinine Ratio, Urine (10/31/2022 7:21 AM CDT) Albumin Ur <12.0 mg/L [facility] ([place]) Comment: Interpretive Data No reference range established. Current interpretive data was last revised 2018. Testing performed by: [address] [address] Creatinine Ur 119.0 mg/dL [facility]EL[facility] DUE[facility] ([place]) Comment: Interpretive Data No reference range established. Current interpretive data was last revised 2018. Testing performed by: [address] [address] Albumin Creatinine Ratio, Ur <10 1 - 29 mg/g [facility] DUE[facility] ([place]) Comment:Testing performed by : [address] [address] Urine 10/31/2022 7:21 AM CDT 10/31/2022 3:21 PM CDT Narrative [facility] ([place]) - 10/31/2022 4:36 PM CDT fasting us Joanie Cardona MD LAB URINE ORDERABLES Final Result Performing Organization Address City/[facility] Co de Phone Number ANNABELLE DUEÑAS ([place]) 1 [facility] Department [place] [address] * Diabetic Eye Exam (07/02/2022) Generic External Data Provider HEALTH MAINTENANC E Final Result * DIABETES FOOT EXAM (07/11/2016) Diabetic Foot Exam Abnormal Comment:Vibratory sensation is decreased in both feet. Historical Provider HEALTH MAINTENANCE Final Result from Last 3 Months or Most Recently Relevant to Health Maintenance Insurance [employer] [email or web address] [facility] Care Teams Senior Librarian Relationship Specialty Start Date End Date Joanie Cardona MD [address] [place] [address] DR DORSEY [address] [place] [id number] PCP - General Family Medicine 10/25/21 Sarah Daniels DPM [address] [place] [id number] Consulting Physician Foot and Ankle Surg 07/20/23
--- OUTSIDE RECORDS SUMMARY | 2024-09-19 14:30 | XMS_ITS | Encounter Summary ---
Author Organization [facility] Address [address] [place] [address] Phone Care Team Providers Care Letter Of Credit Document Examiner Name Role Phone Surinder Escobedo MD Primary Care Provider [phone] Joanie Cardona MD Primary Care Provide r Surinder Escobedo MD Primary Care Provider [phone] Joanie Cardona MD Primary Care Provide r Sarah Daniels DPM Unavailable [phone] Encounter Details Date Type Department Care Team (Late st Contact Info) Description 07/15/2017 [facility] Only [facility] ProviderEldon MD [address] [place] [id number] Social History Tobacco Use Types Packs/Day Years Used Date Smoking Tobacco: Never Alcohol Use Standard Drinks/Week Comments No 0 (1 standard drink = 0.6 oz pur e alcohol) Sex and Gender Information Value Date Recorded Sex Assigned at Not on file 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 us Historical Provider LAB BLOOD ORDERABLES Lorena l Result documented in this encounter Visit Diagnoses Not on filedocumented in this encounter Care Teams Letter Of Credit Document Examiner Relationship Specialty Start Date End Date Surinder Escobedo MD PCP - General 07/15/16 09/14/21 Joanie Cardona MD [address] [place] [address] DR DORSEY [address] [place] [id number] PCP - General Family Medicine 09/15/21 10/20/21 Surinder Escobedo MD [address] [place] [address] DR DORSEY [address] [place] [id number] PCP - General 10/21/21 10/24/21 Joanie Cardona MD [address] [place] [address] DR DORSEY [address] [place] [id number] PCP - General Family Medicine 10/25/21 Sarah Daniels DPM [address] [place] [id number] Consulting Physician Foot and Ankle Surg 07/20/23 documented as of this encounter
--- OUTSIDE RECORDS SUMMARY | 2024-09-19 14:30 | XMS_ITS | Referral Summary ---
Author Organization [facility] Address [address] [place] [id number] Care Team Providers Care Paperback Machine Operator Name Role Phone Joanie Cardona MD Primary Care Provide r Sarah Daniels DPM Unavailable [phone] Allergies No known active allergies Medications glucagon [...] daily Assessment & Plan (06/04/2018 9:03 AM LAW FIRM ADMINISTRATOR): Last labs completed nearly 1 year ago [...] months Assessment & Plan (05/02/2022 4:47 PM LAW FIRM ADMINISTRATOR): Bp in the office today BP Readings [...] months Assessment & Plan (05/02/2022 4:47 PM LAW FIRM ADMINISTRATOR): The patient was counseled on a heart-healthy, [...] Encounter 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 PPD testing completed office [...] 07/25/2020,06/30/2020 Pneumococcal Polysaccharide PPV23 02/07/2018 Tdap 12/30/2009 Social History Tobacco Use Types Packs/Day Years [...] on file Legal Sex Male 11:55 PM LAW FIRM ADMINISTRATOR Gender Identity Not on file Sexual Orientation Not on file Last Filed Vital Signs Vital Sign Reading [...] 07/20/2023 10:01 AM CDT Plan of Treatment Not on file Medical Devices Implanted Type Area Metal Finisher Device Identifier Shelf Expiration Date Model / Serial / Lot [employer] Jaffrey Suture Juggerknot 1 Short Od1.45 Mm Drill Bit Soft Rigid [id number] - [id number] Implanted:Qty: 1 on 07/20/2023 by Sarah Daniels DPM at [facility] Right: Fibula [employer] [id number] 10/08/2027 [id number] / / [id number] [employer] Jaffrey Suture Juggerknot 1 Short Od1.45 Mm Drill Bit Soft Rigid [id number] - [id number] Implanted:Qty: 1 on 07/20/2023 by Sarah Daniels, RENAYM at [facility] Right: Fibula [employer] [id number] 10/27/2027 [id number] / / [id number] [employer] Jaffrey Suture Juggerknot 1 Short Od1.45 Mm Drill Bit Soft Rigid [id number] - [id number] Implanted:Qty: 1 on 07/20/2023 by Sarah Daniels DPM at [facility] Right: Fibula [employer] [id number] 10/06/2027 [id number] / / [id number] [employer] Jaffrey Suture Juggerknot 1 Short Od1.45 Mm Drill Bit Soft Rigid [id number] - [id number] Implanted:Qty: 1 on 07/20/2023 by Sarah Daniels, RENAYM at [facility] Right: Fibula [employer] [id number] 12/29/2023 [id number] / / [id number] Procedures Procedure Name Priority Date/Time Associated Diagnosis [...] AM CDT 10/31/2022 9:39 AM CDT us Joanie Cardona MD LAB BLOOD ORDERABLES Final Result [facility] ([place]) 1 [facility] [place] [address] * Hepatitis C antibody (10/31/2022 7:27 AM CDT) Hep C Ab Nonreactive Nonreactive ANNABELLE DUE[facility]AS ([place]) Comment: Interpretive Data Nonreactive: Antibodies to HCV [...] last revised on 2019. Testing performed by: [facility], [address] [place] [address]., [id number] Blood 10/31/2022 7:27 AM CDT 10/31/2022 3:32 PM CDT Narrative [facility]ELLE DUE[facility] ([place]) - 10/31/2022 4:36 PM CDT fasting Joanie Cardona MD LAB MICROBIOLOGY - NERAL ORDERABLES Final Result Performing Organization Address [facility]/ZIP Co de Phone Number AN[facility]ELLE [facility] ([place]) 1 [facility] [place] [address] * TSH (10/31/2022 7:27 AM CDT) Thyroid Stimulating Hormone 2.59 0.30 - 4.20 mcIUnit/mL ANNABELLE DUE[facility]AS ([place]) Blood 10/31/2022 7:27 AM CDT 10/31/2022 9:39 AM CDT Vaishali Jolly APRN LAB BLOOD ORDERABLES Lorena l Result Performing Organization Address City/[facility]/ZIP Co de Phone Number [facility] ([place]) 1 [facility] [place] [address] * (ABNORMAL) Hemoglobin A1c (10/31/2022 7:27 AM CDT) Hgb A1C 7.5(H) 4.0 - 5.6 % [facility]NABELLE UDE[facility] ([place]) Estimated Average Glucose 169 mg/dL [facility]NABELLE DUE[facility]AS ([place]) Comment: The ADA recommends reporting an estimated Average Glucose (eAG) with all Hemoglobin A1c results using the equation derived from a study of 507 normal and diabetic adults. Minority populations were underrepresented and children were not included. (Diabetes Care 31:8595-0119, 2008). The eAG is not equivalent to a fasting glucose. Blood 10/31/2022 7:27 AM CDT 10/31/2022 9:39 AM CDT Narrative [facility]NA[facility]ELLE DUE[facility]AS ([place]) - 10/31/2022 10:03 AM CDT fasting Joanie Cardona MD LAB BLOOD ORDERABLES Final Result ANNABELLE DUE[facility]AS ([place]) 1 [facility] [place] [address] * Lipid panel (10/31/2022 7:27 AM CDT) [...] revised on 2017. Triglycerides 75 <=149 mg/dL ANNABELLE MENDENHALL) Comment: Interpretive Data Ages < or = [...] revised on 2017. Chol/HDL ratio 4 BECCA DUEÑAS ([place]) Blood 10/31/2022 7:27 AM CDT 10/31/2022 9:39 AM CDT Vaishali Jolly APRN LAB BLOOD ORDERABLES [place]orena l Result Performing Organization Address City/[facility]/ZIP Co de Phone Number ANNABELLE DUEÑAS ([place]) 1 [facility] [place] [address] * Albumin Creatinine Ratio, Urine (10/31/2022 7:21 AM CDT) Albumin Ur <12.0 mg/L [facility] AM [facility] ([place]) Comment: Interpretive Data No reference range established. Current interpretive data was last revised 2018. Testing performed by: [facility], [address] [place] [address]., [id number] Creatinine Ur 119.0 mg/dL [facility] Comment: Interpretive Data No reference range established. Current interpretive data was last revised 2018. Testing performed by: [facility], [address] [place] [address]., [id number] Albumin Creatinine Ratio, Ur <10 1 - 29 mg/g [facility] ([place] Comment:Testing performed by : [facility], [address] [place] [address], [id number] Urine 10/31/2022 7:21 AM CDT 10/31/2022 3:21 PM CDT Narrative [facility] ([place]) - 10/31/2022 4:36 PM CDT fasting Joanie Cardona MD LAB URINE ORDERABLES Final Result Performing Organization Address [facility] Co de Phone Number ANNABELLE DUEÑAS ([place]) 1 [facility] [place] [address] * Diabetic Eye Exam (07/02/2022) us Generic External Data Provider HEALTH MAINTENANC E Final Result * DIABETES FOOT EXAM (07/11/2016) Diabetic Foot Exam Abnormal Comment:Vibratory sensation is decreased in both feet. Historical Provider HEALTH MAINTENANCE Final Result from Last 3 Months or Most Recently Relevant to Health Maintenance [place] [employer] [place] [facility] [employer] [place] Care Teams Paperback Machine Operator Relationship Specialty Start Date End Date Joanie Cardona MD [address] [place] [id number] PCP - General Family Medicine 10/25/21 Sarah Daniels DPM [address] [place] [address] [phone] Consulting Physician Foot and Ankle Surg 07/20/23
== END 2024-09-19 14:45 | disposition short-term general hospital (02) ==
DX: S92.412B Displaced fracture of proximal phalanx of left great toe, initial encounter for open fracture (principal); E10.9 Type 1 diabetes mellitus without complications; W10.8XXA Fall (on) (from) other stairs and steps, initial encounter
CPT/HCPCS: 73630; 99214; G0463